=== PATIENT | female | born 2000 | race Two or more races ===

== ENCOUNTER 2024-06-26 14:50 | Emergency (ER) | payer OTHER ==
[~2024-06-26] VITALS: Ht 157.5 cm; Wt 49.9 kg
[~2024-06-26 14:50] MED LIST: AMOXICILLIN125 MG PO; PROVENTIL0.5 ML/2.5 IH; TUSSI PRES-B L120 M1 PO
[2024-06-26 15:24] VITALS: BP 124/82; O2SAT 98
[2024-06-26 16:42] LABS: HEMATOCRIT 29.9 % (36.0-45.00); HEMOGLOBIN 9.5 g/dL (12.0-15.00); MEAN CELL VOLUME 69.2 fL (80.00-100.00); MEAN CORPUSCULAR HEMOGLOBIN 21.9 pg (27.00-32.0); MEAN CORPUSCULAR HGB CONC 31.6 g/dl (32.0-36.0); PLATELET COUNT 319 K/uL (150-450); RED BLOOD COUNT 4.32 M/uL (4.00-6.00); RED CELL DISTRIBUTION WIDTH 14.7 % (11.5-14.5)
[2024-06-26 17:12] LABS: ERYTHROCYTE SEDIMENTATION RATE 96 mm/hr
[2024-06-26] MEDS ORDERED: METHYLPREDNISOLONE SOD SUCC 40 MG VIAL IM SCH (17:59)
[2024-06-26] MEDS ORDERED: KETOROLAC TROMETHAMINE 30 MG VIAL IM STA (17:59)
[2024-06-26] MEDS ORDERED: KETOROLAC TROMETHAMINE 30 MG VIAL ONE (18:03)
[2024-06-26] MEDS ORDERED: METHYLPREDNISOLONE SOD SUCC 40 MG VIAL ONE (18:03)
== END 2024-06-26 18:10 | disposition home or self-care (01) ==
LOC: ER 14:52
DX: R22.31 Localized swelling, mass and lump, right upper limb (principal)